=== PATIENT | female | born 1995 | race Caucasian/White ===

== ENCOUNTER 2017-12-10 19:23 | Outpatient (CLI) | payer OTHER | END 2017-12-10 20:30 | disposition home or self-care (01) | LOC: M LDO 19:23 | DX: O47.1 False labor at or after 37 completed weeks of gestation (principal); Z3A.40 40 weeks gestation of pregnancy | CPT/HCPCS: 59025 ==

== ENCOUNTER 2017-12-11 00:37 | Outpatient (CLI) | payer OTHER ==
[2017-12-11] MEDS: PROMETHAZINE INJ 25 MG/ML VIAL (J2550) IV (02:06)
[2017-12-11] MEDS: NALBUPHINE HCL 10 MG/ML AMP (J2300) IM (02:07)
[2017-12-11] MEDS: NALBUPHINE HCL 10 MG/ML AMP (J2300) IV (02:07)
== END 2017-12-11 04:42 | disposition home or self-care (01) ==
LOC: M LDO 00:37
DX: O47.1 False labor at or after 37 completed weeks of gestation (principal); Z3A.40 40 weeks gestation of pregnancy
CPT/HCPCS: J2300

== ENCOUNTER 2017-12-11 12:37 | Inpatient (IN) | payer OTHER ==
[2017-12-11] MEDS: LACTATED RINGER'S 1000 ML IV (17:00)
[2017-12-11 17:40] LABS: HEMATOCRIT 41.3 % (36.0-47.0); HEMOGLOBIN 14.3 g/dl (12.0-16.0); MEAN CORPUSCULAR HEMOGLOBIN 30.2 pg (27.0-33.0); MEAN CORPUSCULAR HGB CONC 34.6 g/dl (32.0-36.5); MEAN CORPUSCULAR VOLUME 87.3 fl (80.0-96.0); PLATELET COUNT, AUTOMATED 206 10^3/uL (150-450); RED BLOOD COUNT 4.73 10^6/uL (4.00-5.40); RED CELL DISTRIBUTION WIDTH 12.6 % (11.5-14.5); WHITE BLOOD COUNT 19.2 10^3/uL (4.0-10.0)
[2017-12-11] MEDS ORDERED: FENTANYL 2MCG/ML ROPIVACAINE 0.2% IN 0.9% NACL 200ML IVBAG As Ordered (17:55)
[2017-12-11] MEDS ORDERED: REFRIGERATOR IV KEYS XX (18:25)
[2017-12-11] MEDS ORDERED: ePHEDrine SULFATE 25 MG/5 ML(5MG/ML) SYRINGE IV (18:25)
[2017-12-11] MEDS ORDERED: diphenhydrAMINE INJ 50MG/ML VIAL (J1200) IV (18:25)
[2017-12-11] MEDS: FENTANYL/ROPIVACAINE/NACL BAG 200 ML EPIDURAL (18:25)
[2017-12-11] MEDS ORDERED: EPIDURAL/PCA KEYS XX (18:25)
[2017-12-11] MEDS ORDERED: ONDANSETRON 4MG/2ML VIAL (J2405) IV (18:25)
[2017-12-11] MEDS ORDERED: NALOXONE INJ 0.4 MG/1 ML VIAL (J2310) IV (18:25)
[2017-12-11] MEDS ORDERED: EPIDURAL COMMENT XX (18:25)
[2017-12-11 18:29] LABS: ALBUMIN 3.1 GM/DL (3.2-5.2); ALBUMIN/GLOBULIN RATIO 0.78 (1.00-1.93); ALKALINE PHOSPHATASE 134 U/L (45-117); ALT/SGPT 14 U/L (12-78); ANION GAP 11 MEQ/L (8-16); AST/SGOT 13 U/L (7-37); BILIRUBIN,TOTAL 0.4 MG/DL (0.2-1.0); BLOOD UREA NITROGEN 6 MG/DL (7-18); CALCIUM LEVEL 9.3 MG/DL (8.5-10.1); CARBON DIOXIDE LEVEL 24 MEQ/L (21-32); CHLORIDE LEVEL 103 MEQ/L (98-107); GLOMERULAR FILTRATION RATE > 60.0 (>60); GLUCOSE, FASTING 105 MG/DL (70-100); POTASSIUM SERUM 4.4 MEQ/L (3.5-5.1); SODIUM LEVEL 138 MEQ/L (136-145); TOTAL PROTEIN 7.1 GM/DL (6.4-8.2)
[2017-12-11] MEDS: LR 1,000 ML IV (18:55)
[2017-12-11] MEDS: OXYTOCIN DRIP 30 UNITS in APPROPRIATE DILUENT 1 EA IV (23:23)
[2017-12-12] MEDS: LR 1,000 ML IV ×2 (00:46→08:15)
[2017-12-12] MEDS: OXYTOCIN DRIP 30 UNITS in APPROPRIATE DILUENT 1 EA IV (03:56)
[2017-12-12] MEDS ORDERED: DOCUSATE SODIUM 100 MG CAP PO (04:00)
[2017-12-12] MEDS: IBUPROFEN 800 MG TAB PO ×2 (05:06→15:55)
[2017-12-12] MEDS: PRENATAL VITAMINS CHEWABLE TABLET PO (08:17)
[2017-12-12] MEDS: DIBUCAINE 1% OINTMENT 30GM TOP (08:18)
[2017-12-12] MEDS: ACETAMINOPHEN 500 MG TAB PO (08:18)
[2017-12-12 08:27] LABS: HEMATOCRIT 32.6 % (36.0-47.0); MEAN CORPUSCULAR HGB CONC 34.7 g/dl (32.0-36.5); MEAN CORPUSCULAR VOLUME 89.3 fl (80.0-96.0); PLATELET COUNT, AUTOMATED 149 10^3/uL (150-450); RED BLOOD COUNT 3.65 10^6/uL (4.00-5.40); RED CELL DISTRIBUTION WIDTH 12.6 % (11.5-14.5); WHITE BLOOD COUNT 21.3 10^3/uL (4.0-10.0)
[2017-12-12 08:33] LABS: HEMOGLOBIN 11.3 g/dl (12.0-16.0)
[2017-12-12 08:38] LABS: PARTIAL THROMBOPLASTIN TIME 30.3 SECONDS (26.8-37.9)
[2017-12-12 08:56] LABS: FIBRINOGEN 379 MG/DL (221-452)
[2017-12-12 11:57] LABS: HEMATOCRIT 32.7 % (36.0-47.0); HEMOGLOBIN 11.2 g/dl (12.0-16.0); MEAN CORPUSCULAR HEMOGLOBIN 30.3 pg (27.0-33.0); MEAN CORPUSCULAR HGB CONC 34.3 g/dl (32.0-36.5); MEAN CORPUSCULAR VOLUME 88.4 fl (80.0-96.0); PLATELET COUNT, AUTOMATED 157 10^3/uL (150-450); RED CELL DISTRIBUTION WIDTH 12.7 % (11.5-14.5); WHITE BLOOD COUNT 20.1 10^3/uL (4.0-10.0)
[2017-12-12] MEDS: FENTANYL/ROPIVACAINE/NACL BAG 200 ML EPIDURAL (14:25)
[2017-12-13] MEDS: RHOGAM 300 MCG (1500 IU) INJ (J2790) IM (07:31)
[2017-12-13] MEDS: MEASLES,MUMPS,RUBELLA VACCINE INJ (MMR-II) (90707) SC (07:32)
[2017-12-13] MEDS: PRENATAL VITAMINS CHEWABLE TABLET PO (08:12)
[2017-12-13] MEDS: IBUPROFEN 800 MG TAB PO ×2 (08:13→16:36)
[2017-12-14] MEDS: PRENATAL VITAMINS CHEWABLE TABLET PO (09:02)
[2017-12-14 11:26] LABS: HEPATITIS B SURFACE ANTIGEN NEGATIVE (NEGATIVE)
[2017-12-15] MEDS: PRENATAL VITAMINS CHEWABLE TABLET PO (08:45)
== END 2017-12-15 14:00 | disposition home or self-care (01) | DRG 775 ==
LOC: M LDO 12:37 → M OBS 12-12 12:15 → M LDI 16:17
PROC: 0HQ9XZZ Repair Perineum Skin, External Approach (ICD-10-PCS; 2017-12-11)
PROC: 10907ZC Drainage of Amniotic Fluid, Therapeutic from Products of Conception, Via Natural or Artificial Opening (ICD-10-PCS; 2017-12-11)
PROC: 10E0XZZ Delivery of Products of Conception, External Approach (ICD-10-PCS; principal; 2017-12-12)
DX: O48.0 Post-term pregnancy (principal); O71.7 Obstetric hematoma of pelvis; Z3A.40 40 weeks gestation of pregnancy; O69.81X0 Labor and delivery complicated by cord around neck, without compression, not applicable or unspecified; O70.0 First degree perineal laceration during delivery; O77.0 Labor and delivery complicated by meconium in amniotic fluid; Z37.0 Single live birth

== ENCOUNTER → 2018-09-01 | Outpatient (CLI) | payer OTHER | LOC: M LRY 13:30 | DX: M54.5 Low back pain (principal) | CPT/HCPCS: 72110; 81002 ==

== ENCOUNTER → 2020-01-04 | Outpatient (REF) | payer OTHER ==
[~2020-01-04] MED LIST: COLA100C5 PO; IBUP-1114 PO; MAPA500T2 PO; PRENTAB9 PO
== END ==
LOC: M SFHCLERA 20:37
PROVIDERS: ATTEND Physician Assistant
DX: N89.8 Other specified noninflammatory disorders of vagina (principal)
CPT/HCPCS: 81002; 81025; 87070; 87086; G0463